=== PATIENT | female | born 1995 | race Caucasian/White ===

== ENCOUNTER 2017-06-04 17:44 | Emergency (ER) | payer BC, OTHER, SELFPAY ==
[2017-06-04] MEDS ORDERED: Adacel (T-DAP) 0.5 ML VIAL ONE (17:59)
[2017-06-04] MEDS ORDERED: Rabies Vaccine Human 2.5 UNITS VIAL ONE (18:08)
== END 2017-06-04 19:05 | disposition home or self-care (01) ==
LOC: SCSER 17:44
DX: S61.551A Open bite of right wrist, initial encounter (principal); S61.531A Puncture wound without foreign body of right wrist, initial encounter; Z23 Encounter for immunization; F41.9 Anxiety disorder, unspecified; Z79.1 Long term (current) use of non-steroidal anti-inflammatories (NSAID); W55.01XA Bitten by cat, initial encounter
CPT/HCPCS: 90375; 90471; 90472; 90675; 90715; 96372

== ENCOUNTER → 2017-06-07 | Day surgery (SDC) | payer OTHER, SELFPAY ==
[~2017-06-07] MED LIST: Rabies Vaccine Human 2.5 UNITS VIAL ONE
== END ==
LOC: ER/OP 13:57 → SCSER/OP 13:57 → EDSTATUS 06-09 13:09
PROVIDERS: ATTEND Emergency Medicine
DX: Z23 Encounter for immunization (principal)
CPT/HCPCS: 90471; 90675

== ENCOUNTER 2017-06-11 17:30 | Outpatient (CLI) | payer OTHER, SELFPAY ==
[2017-06-11] MEDS ORDERED: Rabies Vaccine Human 2.5 UNITS VIAL ONE (17:52)
== END 2017-06-11 17:31 | disposition home or self-care (01) ==
LOC: SCSER/OP 17:30
PROVIDERS: ATTEND Emergency Medicine
DX: Z23 Encounter for immunization (principal)
CPT/HCPCS: 90471; 90675

== ENCOUNTER → 2017-06-19 | Day surgery (SDC) | payer SELFPAY | LOC: SCSER/OP 13:29 | PROVIDERS: ATTEND Emergency Medicine Emergency Medical Services | DX: Z23 Encounter for immunization (principal); F41.9 Anxiety disorder, unspecified | CPT/HCPCS: 90471; 90675 ==